=== PATIENT | male | born 1995 | race African-American/Black ===

== ENCOUNTER 2018-02-10 02:20 | Inpatient (IN) | END 2018-02-12 12:45 | disposition home or self-care (01) | DRG 177 ==

== ENCOUNTER 2018-02-24 10:49 | Emergency (ER) | END 2018-02-24 13:43 | disposition home or self-care (01) ==

== ENCOUNTER 2019-03-12 13:40 | Emergency (ER) | payer MEDICAID, OTHER ==
[~2019-03-12] VITALS: Ht 180.3 cm; Wt 78.6 kg
[~2019-03-12 13:40] MED LIST: HYDR-4011 PO; NAPR-985 PO; TRAM50TA PO
[2019-03-12 14:02] VITALS: BP 134/60; Ht 180.3 cm; Wt 78.6 kg
[2019-03-12 15:59] VITALS: PULSE 78; RESP 20
== END 2019-03-12 15:38 | disposition home or self-care (01) ==
LOC: FTE 13:40
DX: S99.912A Unspecified injury of left ankle, initial encounter (principal); X58.XXXA Exposure to other specified factors, initial encounter; Y92.310 Basketball court as the place of occurrence of the external cause
CPT/HCPCS: 29515; 73610; Z7502